=== PATIENT | female | born 1975 | race Caucasian/White ===

== ENCOUNTER 2018-10-29 13:17 | Emergency (ER) | payer MEDICAID ==
[2018-10-29] MEDS ORDERED: FAMOTIDINE IV 20 MG in 0.9 % SODIUM CHLORIDE 100ML 50 ML IVPB ONE (13:29)
[2018-10-29] MEDS ORDERED: ONDANSETRON HCL IV 4 MG/2 ML VIAL IV ONE (13:29)
[2018-10-29] MEDS ORDERED: 0.9 % SODIUM CHLORIDE 1,000 ML BAG IV ONE (13:29)
--- NOTE | 2018-10-29 13:36 | Emergency Department Record ---
History of Present Illness - General Chief Complaint: Abdominal Pain Stated Complaint: HEADACHE,ABD PAIN, CANT KEEP ANYTHING DOWN Time Seen by Provider: 10/29/18 13:22 Source: Patient Mode of Arrival: Ambulatory Limitations: No limitations - History of Present Illness Initial Comments: Pt presents alone by car from home with a 2 day hx of vomiting and a noted increase in her baseline diarrhea. Pt with hx of Lupus and states her normal mediations give her diarrhea but over the past two days that has increased in frequency. "It is burning now". No blood in stool. Also she is vomiting and has heart burn associated with that. There is no fever or chills. Ate [employer] Monday, the day before onset, and states that is outside of her "normal" diet. Son at the same without issue. No new meds, antibiotics, travel. Abd surgery history includes GB. - Related Data Home Medications Medication Instructions Recorded Confirmed Last Taken Celecoxib [Celebrex] 200 mg PO DAILY 10/29/18 10/29/18 Unknown Hydrocodone/APAP 5/325Mg [Tonica 1 each PO DAILY 10/29/18 10/29/18 Unknown 5Mg/325Mg] Hydroxychloroquine Sulfate 200 mg PO DAILY 10/29/18 10/29/18 Unknown [Plaquenil] Pilocarpine HCl [Salagen] 5 mg PO TID 10/29/18 10/29/18 Unknown Previous Rx's Medication Instructions Recorded Ondansetron [Zofran Odt] 4 mg PO Q8H PRN #20 tab.rapdis 10/29/18 Allergies Allergy/AdvReac Type Severity Reaction Status Date / Time latex Allergy HIVES Verified 10/29/18 13:33 sulfamethoxazole Allergy RASH Verified 10/29/18 13:33 [From Bactrim] trimethoprim [From Bactrim] Allergy RASH Verified 10/29/18 13:33 Review of Systems Constitutional: Denies: Chills, Fever, Weakness Eyes: Denies: Eye discharge, Photophobia ENT: Denies: Congestion, Throat pain Respiratory: Denies: Cough Cardiovascular: Denies: Arrhythmia, Chest pain, Syncope Endocrine: Reports: Fatigue. Denies: Polydipsia, Polyuria Gastrointestinal: Reports: As per HPI, Abdominal pain, Diarrhea, Nausea, Vomiting. Denies: Hematemesis Musculoskeletal: Denies: Arthralgia Skin: Denies: Bruising, Rash Neurological: Reports: Headache. Denies: Confusion, Vertigo Psychiatric: Denies: Anxiety, Suicidal thoughts Physical Exam - General General Appearance: Alert, Oriented x3, Cooperative, Mild distress - Head Head exam: Atraumatic - Eye Eye exam: Normal appearance, PERRL - ENT ENT exam: Normal exam, Mucous membranes moist, Normal external ear exam, Normal orophraynx, TM's normal bilaterally - Neck Neck exam: Normal inspection, Full ROM. negative: Tenderness - Respiratory Respiratory exam: Normal lung sounds bilaterally. negative: Respiratory distress - Cardiovascular Cardiovascular Exam: Regular rate, Normal rhythm, Normal heart sounds - GI/Abdominal GI/Abdominal exam: Soft, Normal bowel sounds. negative: Distended, Guarding, Rebound, Tenderness - Extremities Extremities exam: Normal inspection. negative: Joint swelling, Tenderness - Back Back exam: Denies: Paraspinal tenderness - Neurological Neurological exam: Alert, Normal gait, Oriented X3 - Psychiatric Psychiatric exam: Normal affect, Normal mood - Skin Skin exam: Normal color. negative: Rash Course - Reevaluation(s) Reevaluation #1: 10/29/18 13:35 Seen and exam. IV hydration and meds. Labs pending. Reevaluation #2: 10/29/18 15:14 SED rate 25. Labs reviewed. Pt improved with decreased nausea. Up to urinate in ED. Gait stable. Discussed plan. Pt agrees. Offered call to PMD but pt states that is not necessary. Medical Decision Making - Data Complexity MDM Data: Labs Ordered and/or Reviewed - Lab Data Result diagrams: 10/29/18 14:02 10/29/18 14:02 Disposition Disposition: Discharge Clinical Impression: Vomiting, Diarrhea Disposition: Home, Self-Care Condition: (2) Stable Instructions: Acute Nausea and Vomiting (ED), Acute Diarrhea (ED) Additional Instructions: Clear liquid diet tonight. Advancing as tolerated tomorrow. Take Zofran as instructed. See your Family Doctor in 2-3 days or return here to the ER as needed. Prescriptions: Ondansetron [Zofran Odt] 4 mg PO Q8H PRN #20 tab.rapdis PRN Reason: Nausea Forms: Patient Portal Access Time of Disposition: 15:17 Quality - Quality Measures Quality Measures: N/A - Blood Pressure Screening Does Patient Have Any of the Following: No Blood Pressure Classification: Pre-Hypertensive BP Reading Systolic Measurement: 139 Diastolic Measurement: 83 Screening for High Blood Pressure: < Pre-Hypertensive BP, F/U Documented > [ [id number]] Pre-Hypertensive Follow-up Interventions: Follow-up with rescreen every year.
[2018-10-29 14:05] LABS: ABSOLUTE NEUTROPHIL COUNT 6.77; BASO % 0.2 % (0-6); EOS % 0.3 % (0-6); HEMATOCRIT 42.8 % (35.0-47.0); HEMOGLOBIN 13.9 gm/dl (11.6-16.0); LYMPH % 16.9 % (16-45); MEAN CELL VOLUME 81.2 fl (81-97); MEAN CORPUSCULAR HEMOGLOBIN 26.4 pg (27-33); MEAN CORPUSCULAR HGB CONC 32.5 g/dl (32-36); MONO % 6.6 % (0-9); PLATELET COUNT 214 K/uL (130-400); RED BLOOD COUNT 5.27 M/uL (3.80-5.40); WHITE BLOOD COUNT W/O DIFF 8.9 K/uL (4.2-12.2)
[2018-10-29 14:21] LABS: BLOOD UREA NITROGEN 22 mg/dL (6-20); CREATININE 0.9 mg/dL (0.5-0.9); EST GLOMERULAR FILTRATION RATE > 60 mL/min
[2018-10-29 14:24] LABS: GLUCOSE,RANDOM 89 mg/dL (74-109)
[2018-10-29 15:01] LABS: URINE APPEARANCE CLEAR; URINE BILIRUBIN SMALL (NEGATIVE); URINE BLOOD NEGATIVE (NEGATIVE); URINE COLOR YELLOW; URINE GLUCOSE (UA) NEGATIVE (NEGATIVE); URINE KETONE 40 mg/dL (NEGATIVE); URINE LEUKOCYTE ESTERASE NEGATIVE (NEGATIVE); URINE NITRITE NEGATIVE (NEGATIVE); URINE PROTEIN TRACE (NEGATIVE)
[2018-10-29] MEDS ORDERED: AL HYDROX/MAG HYDROX 30ML UD PO ONE (15:03)
[2018-10-29 15:08] LABS: URINE MUCUS LIGHT; URINE RBC NONE SEEN (NONE SEEN); URINE WBC NONE SEEN (0-2/hpf)
== END 2018-10-29 15:38 | disposition home or self-care (01) ==
LOC: ER 13:17
DX: R11.2 Nausea with vomiting, unspecified (principal); R19.7 Diarrhea, unspecified; R10.0 Acute abdomen
CPT/HCPCS: 99285; 96365; 96375; 99284; 85025; 85651; 80048; 81001; 84703; J3490; J2405; J7030